=== PATIENT | male | born 1970 | race Hispanic/Latino ===

== ENCOUNTER → 2017-08-03 | Outpatient (CLI) | payer OTHER ==
--- NOTE | 2017-08-03 18:30 | Diagnostic Imaging Report ---
PROCEDURE:L-SPINE COMPLETE COMPARISON:None. INDICATIONS:LOWER BACK PAIN FINDINGS: There are 5 lumbar-type vertebral bodies. The vertebral bodies are well-aligned without evidence of spondylolisthesis. There are no acute displaced fractures, lytic or blastic lesions. The disc-space and intervertebral body heights are well-maintained. Minimal degenerative changes at L3-L4. The sacroiliac joints are unremarkable. Bilateral oblique views show no spondylolysis. CONCLUSION: No acute abnormalities. Minimal degenerative changes L3-L4. Roger Gonzalez M.D. Dictated by: Roger Gonzalez M.D. on 08/03/2017 at 18:31 Electronically approved by: Roger Gonzalez M.D. on 08/03/2017 at 18:31
--- NOTE | 2017-08-03 18:31 | Diagnostic Imaging Report ---
PROCEDURE:SACRUM X-RAY INDICATION:Low back pain COMPARISON:None. FINDINGS: Normal mineralization. No acute displaced fracture or dislocation. Sacral arches are preserved. Sacroiliac joints are unremarkable. No lytic or blastic lesion. Soft tissues are unremarkable. CONCLUSION: No acute abnormalities. Roger Gonzalez M.D. Dictated by: Roegr Gonzalez M.D. on 08/03/2017 at 18:32 Electronically approved by: Roger Gonzalez M.D. on 08/03/2017 at 18:32
== END ==
LOC: RAD 12:59
PROVIDERS: ATTEND Internal Medicine
DX: M54.5 Low back pain (principal)
CPT/HCPCS: 72110; 72220